=== PATIENT | female | born 1980 | race Caucasian/White ===

== ENCOUNTER 2022-06-08 08:15 | Outpatient (CLI) | payer BC, SELFPAY ==
[2022-06-08 10:46] LABS: Albumin* 3.7 g/dL (3.3-5.0); Chloride* 108 mmol/L (96-114); Sodium* 136 mmol/L (135-149)
[2022-06-08 10:47] LABS: Potassium* 4.6 mmol/L (3.6-5.1)
[2022-06-08 10:49] LABS: Alanine Aminotransferase* 17 U/L (4-35); Alkaline Phosphatase* 65 U/L (40-150); Aspartate Amino Transferase* 22 U/L (12-35); Bilirubin Total* 0.2 mg/dL (0.1-1.5); Blood Urea Nitrogen* 10 mg/dL (5-24); Carbon Dioxide* 22 mmol/L (20-32); Cholesterol* 177 mg/dL (90-199); Creatinine* 0.7 mg/dL (0.5-1.5); Estimated Glomerular Filt Rate 111 ml/min; Glucose* 106 mg/dL (60-115); Total Protein* 6.5 g/dL (6.0-8.3); Triglycerides* 46 mg/dL (40-149)
[2022-06-08 10:50] LABS: Calcium* 8.7 mg/dL (8.4-10.6); HDL Cholesterol* 53 mg/dL (>=50); LDL Cholesterol Calculated 115 mg/dL (<100)
== END 2022-06-08 08:16 | disposition home or self-care (01) ==
PROVIDERS: PCP Family Medicine; Visit Provider Family Medicine
DX: Z01.419 Encounter for gynecological examination (general) (routine) without abnormal findings (principal); E66.01 Morbid (severe) obesity due to excess calories; Z68.41 Body mass index [BMI] 40.0-44.9, adult; G43.909 Migraine, unspecified, not intractable, without status migrainosus; Z13.6 Encounter for screening for cardiovascular disorders
CPT/HCPCS: 80053; 80061; 84443

== ENCOUNTER 2022-06-26 09:20 | Outpatient (CLI) | payer BC, SELFPAY | END 2022-06-26 09:21 | disposition home or self-care (01) | LOC: OP CLINIC 09:35 | PROVIDERS: PCP Family Medicine; Visit Provider Surgery | DX: Z12.11 Encounter for screening for malignant neoplasm of colon (principal); K63.5 Polyp of colon; Z80.0 Family history of malignant neoplasm of digestive organs | CPT/HCPCS: 45385; 99153; J2250; J3010 ==

== ENCOUNTER 2024-01-25 09:23 | Outpatient (CLI) | payer BC, SELFPAY | END 2024-01-25 09:24 | disposition home or self-care (01) | PROVIDERS: PCP Family Medicine; Visit Provider Family Medicine | DX: R10.9 Unspecified abdominal pain (principal) | CPT/HCPCS: 80048; 80076; 83655; 83785; 84443 ==

== ENCOUNTER 2024-08-08 08:16 | Outpatient (CLI) | payer BC, SELFPAY ==
--- NOTE | 2024-08-08 08:15 | CRLHL7_ITS ---
For Patients: As a result of the Century Cures Act, medical imaging exams and procedure reports are released immediately into your electronic medical record. You may view this report before your referring provider. If you have questions, please contact your health care provider. BILATERAL SCREENING MAMMOGRAM WITH COMPUTER-AIDED DETECTION AND TOMOSYNTHESIS TECHNIQUE: CC and MLO views were obtained. These mammographic images have been obtained using full-field digital technique. These mammographic images were interpreted with the benefit of computer-aided detection. Breast Tomosynthesis was used in this interpretation. COMPARISON FILM: Baseline. FINDINGS: There are scattered areas of fibroglandular density. IMPRESSION: There is no radiographic evidence for malignancy. ASSESSMENT: BI-RADS Category 1: Negative RECOMMENDATION: Routine screening mammogram in 1 year. A lay language report of this examination will be provided to the patient. Manpreet Isaac M.D. Diagnostic Radiologist [email or web address] SP/Dictated by: Manpreet Isaac MD @ 08/11/2024 12:13:00 PM (Electronically Signed)
== END 2024-08-08 08:17 | disposition home or self-care (01) ==
LOC: MAMMO 08:18
PROVIDERS: PCP Family Medicine; Visit Provider Family Medicine
DX: Z12.31 Encounter for screening mammogram for malignant neoplasm of breast (principal)
CPT/HCPCS: 77063; 77067